=== PATIENT | female | born 1940 | race Asian ===

== ENCOUNTER 2019-05-12 07:44 | Day surgery (SDC) | payer OTHER ==
[2019-05-12] MEDS ORDERED: EPINEPHRINE IRR (08:00)
[2019-05-12] MEDS ORDERED: SOD CHLORIDE 0.9% 1,000 ML IV (08:00)
[2019-05-12] MEDS ORDERED: BALANCED SALT IRR (08:00)
[2019-05-12] MEDS ORDERED: GENTAMICIN IRR (08:00)
[2019-05-12] MEDS: CYCLOPENTOLATE/PHENYLEPH 2 ML OPH RIGHT EYE (08:24)
[2019-05-12] MEDS: MOXIFLOXACIN 0.5% 3 ML OPH RIGHT EYE (08:24)
[2019-05-12] MEDS: TROPICAMIDE 1% 15 ML OPH RIGHT EYE (08:24)
[2019-05-12] MEDS: DICLOFENAC 0.1% 2.5 ML OPH RIGHT EYE (08:24)
[2019-05-12] MEDS: ACETAMINOPHEN 500 MG TAB PO (08:25)
[2019-05-12] MEDS ORDERED: LIDOCAINE 2% (SDV) 5 ML INJ (09:53)
[2019-05-12] MEDS ORDERED: PROPOFOL 20 ML (09:53)
[2019-05-12] MEDS ORDERED: ACETAMINOPHEN 325 MG TAB PO (10:00)
[2019-05-12] MEDS ORDERED: LABETALOL HCL 20MG INJ IV (10:00)
[2019-05-12] MEDS ORDERED: ALBUTEROL 0.083% (NEB) 2.5 MG/3 ML AMP HHN (10:00)
[2019-05-12] MEDS ORDERED: ACETAMINOPHEN 500 MG TAB PO (10:00)
[2019-05-12] MEDS ORDERED: FENTAnyl 50 MCG/ML VIAL IV (10:00)
[2019-05-12] MEDS ORDERED: ONDANSETRON 4 MG INJ IV (10:00)
[2019-05-12] MEDS ORDERED: OXYCODONE/ACETAMINOPHEN (5/325) TAB PO (10:00)
[2019-05-12] MEDS ORDERED: hydrALAzine 20 MG INJ IV (10:00)
[2019-05-12] MEDS ORDERED: DIPHENHYDRAMINE 50 MG INJ IV (10:00)
[2019-05-12] MEDS ORDERED: CARBACHOL 0.01% 1.5 ML OPH INJ (10:40)
[2019-05-12] MEDS ORDERED: CEFAZOLIN 1 GM INJ (10:40)
[2019-05-12] MEDS ORDERED: LIDOCAINE 4% (MPF) 5 ML INJ (10:40)
[2019-05-12] MEDS ORDERED: NA HYALURONATE/CHONDROITIN 0.5 ML SYG (10:40)
[2019-05-12] MEDS ORDERED: DEXAMETHASONE 4 MG/ML 1 ML INJ (10:40)
== END 2019-05-12 12:00 | disposition home or self-care (01) ==
LOC: SDS 07:44
DX: H25.11 Age-related nuclear cataract, right eye (principal); I10 Essential (primary) hypertension; E03.9 Hypothyroidism, unspecified; Z79.82 Long term (current) use of aspirin
CPT/HCPCS: 66984